=== PATIENT | female | born 1980 | race Caucasian/White ===

== ENCOUNTER 2017-11-28 04:18 | Emergency (ER) | payer OTHER ==
[2017-11-28] MEDS ORDERED: SODIUM CHLORIDE 0.9% 1,000 ML IV ONE (04:30)
[2017-11-28] MEDS ORDERED: LORazepam 2 MG/ML VIAL IVP STA (04:31)
[2017-11-28 04:51] LABS: BASOPHILS # (AUTO) 0.1 10^3/uL (0.0-0.1); BASOPHILS % (AUTO) 0.9 %; EOSINOPHILS # (AUTO) 0.1 10^3/uL (0.0-0.7); EOSINOPHILS % (AUTO) 1.3 %; HGB - HEMOGLOBIN 13.8 g/dL (12.0-16.0); LYMPHOCYTES % (AUTO) 42.1 %; MEAN CORPUSCULAR HEMOGLOBIN 28.3 pg (27.0-31.0); MEAN CORPUSCULAR HGB CONC 33.8 g/dL (32.0-36.0); MEAN CORPUSCULAR VOLUME 83.7 fL (81.0-99.0); MEAN PLATELET VOLUME 9.6 fL (7.9-10.8); MONOCYTES # (AUTO) 0.9 10^3/uL (0.0-1.0); NEUTROPHILS # (AUTO) 4.3 10^3/uL (1.5-6.6); NEUTROPHILS % (AUTO) 45.7 %; PLT - PLATELET COUNT 204 10^3/uL (130-450); RED BLOOD COUNT 4.86 10^6/uL (4.20-5.40); RED CELL DISTRIBUTION WIDTH 14.5 % (12.0-15.0); WHITE BLOOD COUNT 9.4 x10^3/uL (4.8-10.8)
[2017-11-28 04:58] LABS: ALBUMIN 4.4 g/dL (3.2-5.5); ALBUMIN/GLOBULIN RATIO 1.2 (1.0-2.2); BILIRUBIN,TOTAL 0.6 mg/dL (0.2-1.0); CALCIUM 9.3 mg/dL (8.5-10.3); CREATININE 0.8 mg/dL (0.4-1.0); MAGNESIUM 1.9 mg/dL (1.7-2.8); PHOSPHORUS 4.5 mg/dL (2.5-4.6); TOTAL PROTEIN 8.1 g/dL (6.7-8.2)
--- NOTE | 2017-11-28 05:01 | XRAY Report ---
EXAM: CHEST RADIOGRAPHY EXAM DATE: 11/28/2017 04:46 AM. CLINICAL HISTORY: Chest pressure. COMPARISON: 06/10/2016. TECHNIQUE: 1 view. FINDINGS: Lungs/Pleura: No focal opacities evident. No pleural effusion. No pneumothorax. Mediastinum: Within exam limitations, the cardiomediastinal contour is normal. Other: None. IMPRESSION: Stable negative single view chest. [facility] Referring Provider Line: [phone] SITE ID: [id number]
--- NOTE | 2017-11-28 05:34 | ED Physician Documentation ---
PD HPI CHEST PAIN - Stated complaint Stated Complaint: CHEST PRESSURE - Chief complaint Chief Complaint: Cardiac - History obtained from History obtained from: Patient, Family - History of Present Illness Timing - onset: Yesterday Timing - onset during: Sleep Timing - details: Abrupt onset, Still present Quality: Pressure Associated symptoms: Feeling faint / dizzy, Palpitations. No: Shortness of air , Diaphoresis Similar symptoms before: Work up / diagnostics Recently seen: Not recently seen - Additional information Additional information: patient is a 37 year old female with a history of anxiety who is presenting to the emergency department for palpitations and chest pressure. Patient states that it woke her up from sleep. Patient states that she has had anxiety attacks in the past but this was different as the heart racing was persistent. Patient states that she had holter monitor in the past but it never revealed anything. Review of Systems Constitutional: denies: Fever, Chills Eyes: reports: Reviewed and negative Ears: reports: Reviewed and negative Nose: reports: Reviewed and negative Throat: reports: Reviewed and negative Cardiac: reports: Chest pain / pressure, Palpitations Respiratory: denies: Dyspnea, Cough GI: denies: Nausea, Vomiting : reports: Reviewed and negative Skin: denies: Rash, Lesions Neurologic: denies: Generalized weakness, Focal weakness, Altered mental status , Headache, LOC Psychiatric: reports: Anxiety Endocrine: reports: Weight loss Immunocompromised: denies: Immunocompromised PD PAST MEDICAL HISTORY - Past Medical History Past Medical History: Yes : Kidney stones Psych: Panic attacks - Past Surgical History Past Surgical History: Yes /[employer]FFEE: section - Present Medications Home Medications: Ambulatory Orders Medication Instructions Recorded Confirmed Metoprolol Succinate 100 mg PO DAILY 11/28/17 - Allergies Allergies/Adverse Reactions: Allergies Allergy/AdvReac Type Severity Reaction Status Date / Time No Known Drug Allergies Allergy Verified 11/28/17 04:31 - Social History Does the pt smoke?: No Smoking Status: Never smoker Does the pt drink ETOH?: No Does the pt have substance abuse?: No - Immunizations Immunizations are current?: Yes - POLST Patient has POLST: No PD ED PE NORMAL - Vitals Vital signs reviewed: Yes - General General: Alert and oriented X 3 - HEENT HEENT: Atraumatic, PERRL - Neck Neck: Supple, no meningeal sign - Respiratory Respiratory: No respiratory distress - Abdomen Abdomen: Soft, Non distended - Derm Derm: Normal color, Warm and dry, No rash - Extremities Extremities: No deformity, No calf tenderness / cord - Neuro Neuro: Alert and oriented X 3, No motor deficit, No sensory deficit, Normal speech PD ED PE EXPANDED - General General: Alert, Anxious - Cardiac Cardiac: Tachy, Irregularly irregular - Psych Psych: Tearful, Anxious Results - Vitals Vitals: Vital Signs - 24 hr 11/28/17 11/28/17 04:24 05:13 Temperature 36.8 C Heart Rate 147 H 97 Respiratory 20 15 Rate Blood Pressure 140/74 H 138/86 H O2 Saturation 100 100 Oxygen O2 Source Room air - EKG (time done) 0424 Rate: Rate (enter#) (146) Rhythm: Atrial fibrillation [place]: LAD Ischemia: ST depression Compare to prior EKG: Old EKG unavailable 0512 Rate: Rate (enter#) (99) Rhythm: NSR [place]: Normal Intervals: Normal MS QRS: Normal Compare to prior EKG: Changed from prior EKG - Labs Labs: Laboratory Tests 11/28/17 11/28/17 11/28/17 04:30 04:30 04:30 WBC 9.4 RBC 4.86 Hgb 13.8 Hct 40.7 MCV 83.7 MCH 28.3 MCHC 33.8 RDW 14.5 Plt Count 204 MPV 9.6 Neut # 4.3 Lymph # 4.0 H [place] # 0.9 Eos # 0.1 Baso # 0.1 Absolute Nucleated RBC 0.01 Nucleated RBC % 0.1 Sodium 139 Potassium 3.6 Chloride 104 Carbon Dioxide 20 L Anion Gap 15.0 H BUN 10 Creatinine 0.8 Estimated GFR (MDRD) 81 L Glucose 100 Calcium 9.3 Phosphorus 4.5 Magnesium 1.9 Total Bilirubin 0.6 AST 20 ALT 20 Alkaline Phosphatase 47 Troponin I < 0.04 B-Natriuretic Peptide Total Protein 8.1 Albumin 4.4 Globulin 3.7 Albumin/Globulin Ratio 1.2 Lipase 24 TSH 11/28/17 11/28/17 04:30 04:30 WBC RBC Hgb Hct MCV MCH MCHC RDW Plt Count MPV Neut # Lymph # [place] # Eos # Baso # Absolute Nucleated RBC Nucleated RBC % Sodium Potassium Chloride Carbon Dioxide Anion Gap BUN Creatinine Estimated GFR (MDRD) Glucose Calcium Phosphorus Magnesium Total Bilirubin AST ALT Alkaline Phosphatase Troponin I B-Natriuretic Peptide 41 Total Protein Albumin Globulin Albumin/Globulin Ratio Lipase TSH 1.89 - Rads (name of study) chest x-ray Radiology: Final report received (normal) PD MEDICAL DECISION MAKING - ED course Complexity details: reviewed old records, reviewed results, re-evaluated patient , considered differential, d/w patient, d/w family ED course: patient was seen and examined at bedside. ekg was performed and showed a fib. patient was placed on a monitor. IV access was gained and labs were drawn. Patient was treated with a fluid bolus and ativan 1mg as patient was very worried, tearful and anxious. Patient did calm down but remained persistently tachycardic. Vasalva maneuver was performed and converted the patient back to a sinus rhythm. Patient's diagnostics were otherwise within normal limits. Patient's repeat ekg showed sins rhythm. A lengthy discussion was had with the patient and family concerning the findings. patient required no further work up and was stable for discharge with outpatient follow up. Departure - Departure Disposition: 01 Home, Self Care Clinical Impression: Atrial fibrillation Condition: Good Instructions: ED Dysrhythmia Unspecified Follow-Up: primary,care provider [Other] - Within 3 Days Comments: Your symptoms this morning where caused by an irregular heart beat that improved on its own. Your blood work, chest x-ray and repeat ekg were within normal limits. You will need to follow up with your doctor for repeat holter monitor and echocardiogram. you should avoid stimulants, excessive drinking, or lack of sleep. You may return to the emergency department at any time for new, worsening or uncontrollable symptoms.
[2017-11-28 06:15] VITALS: BP 140/80
== END 2017-11-28 05:45 | disposition home or self-care (01) ==
LOC: ED 04:18
DX: I48.91 Unspecified atrial fibrillation (principal)
CPT/HCPCS: 36415; 71045; 80053; 83690; 83735; 83880; 84100; 84443; 84484; 85025; 93005; 96361; 96374; 99284; J2060

== ENCOUNTER 2017-12-05 11:14 | Outpatient (CLI) | payer OTHER | END 2017-12-05 11:15 | disposition home or self-care (01) | LOC: DI 11:14 | PROVIDERS: ATTEND Nurse Practitioner Family | DX: I48.91 Unspecified atrial fibrillation (principal) | CPT/HCPCS: 93306 ==